=== PATIENT | female | born 1990 | race Caucasian/White ===

== ENCOUNTER 2017-02-27 19:59 | Emergency (ER) | payer MEDICAID, MEDICARE ==
[~2017-02-27] VITALS: Ht 170.2 cm; Wt 108.1 kg
[2017-02-27 20:04] VITALS: BP 127/84
[2017-02-27 23:18] VITALS: BP 122/75
== END 2017-02-27 23:19 | disposition home or self-care (01) ==
LOC: MED 19:59
DX: S39.012A Strain of muscle, fascia and tendon of lower back, initial encounter (principal); S16.1XXA Strain of muscle, fascia and tendon at neck level, initial encounter; V43.52XA Car driver injured in collision with other type car in traffic accident, initial encounter; Y93.I9 Activity, other involving external motion; Y92.488 Other paved roadways as the place of occurrence of the external cause; Y99.8 Other external cause status
CPT/HCPCS: 72100; 81002; 81025; 99284